=== PATIENT | male | born 1990 | race African-American/Black ===

== ENCOUNTER 2016-08-30 13:09 | Emergency (ER) | payer SELFPAY ==
[~2016-08-30] VITALS: Ht 170.2 cm; Wt 105.0 kg
[~2016-08-30 13:09] MED LIST: INSU-118 SQ; LEVEMIR SQ; NOVOLOGP2 SQ; NOVOLOGSS SQ
[2016-08-30 13:12] VITALS: BP 127/58; PULSE 18; PULSE 73; RESP 15; TEMP 98.2; O2SAT 98
--- NOTE | 2016-08-30 15:11 | PD ---
HPI Chief Complaint: Skin Problem Time Seen by Provider: 15:05 Travel History International Travel<30 days: No Contact w/Intl Traveler<30days: No Traveled to known affect area: No History of Present Illness HPI Patient comes in for evaluation of a abscess on his right buttocks that he first noticed approximately 3 days ago. Patient describes pain as a burning pressure-like sensation that radiates distally. Patient denies any fevers, nausea, vomiting, or previous episodes like this. Patient reports that he is a diabetic however his blood sugars have been unchanged since first noticing this. Patient states it began draining pus yesterday. Denies any change in bowel or bladder or pain with defecation.. PFSH Past Medical History Arthritis: No Asthma: No Autoimmune Disease: No Heart Rhythm Problems: No Cancer: No Cardiovascular Problems: No High Cholesterol: No Chemotherapy: No Chest Pain: No Congestive Heart Failure: No COPD: No Diabetes: Yes (NEW ONSET DIABETES ) Diminished Hearing: No GERD: No Genitourinary: No Hiatal Hernia: No Immune Disorder: No Kidney Stones: No Musculoskeletal: No Neurologic: No Psychiatric: No Respiratory: No Radiation Therapy: No Renal Failure: No Seizures: No Sickle Cell Disease: No Sleep Apnea: No Ulcer: No Social History Alcohol Use: No Tobacco Use: No Substance Use: No Allergies-Medications (Allergen,Severity, Reaction): Coded Allergies: No Known Allergies (Verified , 08/30/16) Reported Meds & Prescriptions Reported Meds & Active Scripts Active Keflex (Cephalexin) 500 Mg Cap 500 Mg PO Q8H Bactrim DS (Sulfamethoxazole-Trimethoprim) 800-160 Mg Tab 1 Tab PO BID Review of Systems Except as stated in HPI: all other systems reviewed are Neg Physical Exam Narrative GENERAL: Well-developed, overly nourished, in no acute distress, and non-ill appearing. SKIN: Warm and dry. Abscess noted on the right buttocks appears to have drained recently there is induration without fluctuation and no active draining currently. There is no crepitus is minimally tender to palpation. It is approximately 2.5 x 2 cm in diameter HEAD: Atraumatic. Normocephalic. EYES: Pupils equal and round. EOMI. No scleral icterus. No injection or drainage. ENT: No nasal bleeding or discharge. Mucous membranes pink and moist. NECK: Trachea midline. Supple. No nuclear rigidity. RESPIRATORY: No accessory muscle use. No respiratory distress. MUSCULOSKELETAL: No obvious deformities. No clubbing. No cyanosis. No edema. Full range of motion. NEUROLOGICAL: Awake and alert. No obvious cranial nerve deficits. Motor grossly within normal limits. Normal speech. PSYCHIATRIC: Appropriate mood and affect; insight and judgment normal. Data Data Last Documented VS Vital Signs Date Time Temp Pulse Resp B/P Pulse Ox O2 Delivery O2 Flow Rate FiO2 08/30/16 13:12 98.2 73 15 127/58 98 MDM Medical Decision Making Medical Screen Exam Complete: Yes Emergency Medical Condition: Yes Differential Diagnosis Abscess, cellulitis, other Narrative Course The patient has no evidence of significant cellulitis. There is no evidence of necrotizing fasciitis/ Forneys at this time. The patient will be discharged on antibiotics. The patient was given signs and symptoms warnings for worsening infection, such as spreading of redness, increasing pain, and/or swelling, associated heat, or fever or feels worse, and instructed to return immediately if these signs or symptoms worsen. The patient is to return in 2 days for recheck. Sooner if worsens or as needed. The patient agrees with plan. Patient in no obvious distress upon re-evaluation. Patient was asked if they wanted to speak to my attending, which the patient did not wish to do at this time. Any questions/concerns in reference to patient diagnosis/condition discussed and clarified prior to patient's discharge. Reinforced sheer importance of close follow up with patient's primary physician or primary care clinic. Instructed patient to return to ED immediately, if symptoms return/ worsen. Pt showed understanding of above instructions. Further instructions and recommendations were detailed in discharge paperwork. Pt ambulated without difficulty out of ED at discharge. Diagnosis Primary Impression: Abscess Patient Instructions: Abscess (GEN), Abscess Follow-up (ED), General Instructions, Sitz Bath (GEN) Additional Instructions: Follow-up with your primary care physician or return in 2 days for recheck. Take all medication as prescribed. Apply warm compresses or do sitz baths 3-4 times daily to facilitate continued drainage. Return to the emergency department if symptoms get worse. Med/Other Pt SpecificInfo: Prescription(s) given Scripts Cephalexin (Keflex)500 Mg [id number] Mg PO Q8H #30 CAP Ref 0 Prov:Abhijeet Jimenez MD 08/30/16 Sulfamethoxazole-Trimethoprim (Bactrim DS)800-160 Mg Tab1 Tab PO BID #20 TAB Ref 0 Prov:Abhijeet Jimenez MD 08/30/16 Disposition: 01 DISCHARGE HOME Condition: Stable Robert Roger Aug 30, 2016 15:11
[2016-08-30] MEDS ORDERED: BACT800T5 PO (15:12)
[2016-08-30] MEDS ORDERED: CEPH-460 PO (15:12)
== END 2016-08-30 15:23 | disposition home or self-care (01) ==
LOC: NEPB 13:09
DX: L02.31 Cutaneous abscess of buttock (principal)
CPT/HCPCS: 99283

== ENCOUNTER 2016-10-06 12:55 | Emergency (ER) | payer SELFPAY ==
[~2016-10-06] VITALS: Ht 170.2 cm; Wt 115.0 kg
[~2016-10-06 12:55] MED LIST changes: +BACT800T5 PO; +CEPH-460 PO; -INSU-118 SQ; -LEVEMIR SQ; -NOVOLOGP2 SQ; -NOVOLOGSS SQ
[2016-10-06 12:57] VITALS: BP 162/87; PULSE 96; RESP 15; TEMP 98.2; O2SAT 98
[2016-10-06] MEDS ORDERED: CEPH-460 PO (13:29)
--- NOTE | 2016-10-06 13:30 | PD ---
HPI Chief Complaint: Injury Time Seen by Provider: 13:21 Travel History International Travel<30 days: No Contact w/Intl Traveler<30days: No Traveled to known affect area: No History of Present Illness HPI Patient is a 26-year-old male presented to the emergency room for evaluation of right first toe pain. Patient states it's been going on for approximately 3 days. He denies any injury or trauma. He states that he chipped the nail on that toe a few days ago. Patient states that he is a diabetic, his sugars are so well controlled but he is no longer on medications. He denies any fever, chills, nausea, vomiting, chest pain, shortness of breath. He reports the pain as dull and aching. He reports it as a 3 out of 10. He has no other complaints at this time. PFSH Past Medical History Arthritis: No Asthma: No Autoimmune Disease: No Heart Rhythm Problems: No Cancer: No Cardiovascular Problems: No High Cholesterol: No Chemotherapy: No Chest Pain: No Congestive Heart Failure: No COPD: No Diabetes: Yes Patient Takes Glucophage: No Diminished Hearing: No GERD: No Genitourinary: No Hiatal Hernia: No Immune Disorder: No Kidney Stones: No Musculoskeletal: No Neurologic: No Psychiatric: No Respiratory: No Radiation Therapy: No Renal Failure: No Seizures: No Sickle Cell Disease: No Sleep Apnea: No Ulcer: No Social History Alcohol Use: No Tobacco Use: No Substance Use: No Allergies-Medications (Allergen,Severity, Reaction): Coded Allergies: No Known Allergies (Verified , 10/06/16) Reported Meds & Prescriptions Reported Meds & Active Scripts Active Keflex (Cephalexin) 500 Mg Cap 500 Mg PO Q8H Bactrim DS (Sulfamethoxazole-Trimethoprim) 800-160 Mg Tab 1 Tab PO BID Review of Systems Except as stated in HPI: all other systems reviewed are Neg Musculoskeletal: Positive: Edema Skin: Positive Change in Pigmentation Physical Exam Narrative GENERAL: Well-nourished, well-developed patient. SKIN: Focused skin assessment warm/dry. Right first toenail on the lateral aspect with fluctuance and yellowish discoloration. Mildly tender to palpation , no erythema noted. HEAD: Normocephalic. EYES: No scleral icterus. No injection or drainage. NECK: Supple, trachea midline. No JVD or lymphadenopathy. CARDIOVASCULAR: Regular rate and rhythm without murmurs, gallops, or rubs. RESPIRATORY: Breath sounds equal bilaterally. No accessory muscle use. GASTROINTESTINAL: Abdomen soft, non-tender, nondistended. MUSCULOSKELETAL: No cyanosis, or edema. BACK: Nontender without obvious deformity. No CVA tenderness. Data Data Last Documented VS Vital Signs Date Time Temp Pulse Resp B/P Pulse Ox O2 Delivery O2 Flow Rate FiO2 10/06/16 12:57 98.2 96 15 162/87 98 [facility] Medical Decision Making Medical Screen Exam Complete: Yes Emergency Medical Condition: Yes Interpretation(s) Vital Signs Date Time Temp Pulse Resp B/P Pulse Ox O2 Delivery O2 Flow Rate FiO2 10/06/16 12:57 98.2 96 15 162/87 98 Differential Diagnosis Cellulitis versus abscess versus paronychia versus contusion versus gout versus other Narrative Course Patient is a 26-year-old male presenting to the emergency department for evaluation of right first toe pain. Physical exam revealed a lateral paronychia on the right toe. Please see procedure report for I&D. Patient tolerated procedure well, topical antibiotic ointment and Band-Aid applied. Patient be provided with a prescription for an antibiotic. He is encouraged to avoid cutting nails too short. He was advised to return to emergency department for any new or worsening symptoms or follow up with his primary doctor. Patient verbalized understanding of these instructions. Patient stable for discharge. Procedures Procedure Narrative After the risks and benefits were discussed the following procedure was performed: INCISION AND DRAINAGE OF ABSCESS: The area was prepped and was sterilely draped. Topical ethyl chloride was used to anesthetize area. The area was properly anesthetized. An 18-gauge needle was used to puncture site of fluctuance, purulent drainage expressed. Topical antibiotic ointment and Sterile dressing applied. Diagnosis Primary Impression: Paronychia of great toe of right foot Referrals: Primary Care Physician 1 week Patient Instructions: General Instructions, Paronychia (ED) Additional Instructions: Keep toe clean and dry, apply topical antibiotic ointment and Band-Aid Take medications as directed Return to emergency department immediately for any new or worsening symptoms Med/Other Pt SpecificInfo: Prescription(s) given Scripts Cephalexin (Keflex)500 Mg [id number] Mg PO Q12H 5 Days Ref 0 Prov:Kerline Sims 10/06/16 Disposition: 01 DISCHARGE HOME Condition: Stable Kerline Sims Oct 06, 2016 13:30
== END 2016-10-06 13:35 | disposition home or self-care (01) ==
LOC: NETRI 12:55
DX: L03.031 Cellulitis of right toe (principal)
CPT/HCPCS: 10060

== ENCOUNTER 2016-11-29 12:23 | Emergency (ER) | payer SELFPAY ==
[~2016-11-29] VITALS: Ht 170.2 cm; Wt 110.0 kg
[2016-11-29 12:24] VITALS: BP 159/80; PULSE 92; RESP 20; TEMP 97.4; O2SAT 96
--- NOTE | 2016-11-29 12:27 | PD ---
Physical Exam Time Seen by Provider: 12:25 Narrative 26 y/o male here for evaluation of cramps in the extremities, torso, intermittent, for 3 days. Vital signs reviewed. Seen at triage desk, awaiting bed placement. Data Data Last Documented VS Vital Signs Date Time Temp Pulse Resp B/P Pulse Ox O2 Delivery O2 Flow Rate FiO2 11/29/16 12:24 97.4 92 20 159/80 96 Room Air MDM Medical Record Reviewed: Yes Supervised Visit with KAVITA: Dmitri Blake November 29, 2016 12:26
--- NOTE | 2016-11-29 12:55 | PD ---
HPI Chief Complaint: Pain: Acute or Chronic Time Seen by Provider: 12:48 Travel History International Travel<30 days: No Contact w/Intl Traveler<30days: No Traveled to known affect area: No History of Present Illness HPI Patient is a 26-year-old male who presents the emergency department with complaint of muscle cramps. Patient states that he has been having cramping in the muscles of the arms, legs for the last several days intermittently. These are painful when they do come. He hasn't found anything that makes it better or worse. Muscle cramps in the legs are the most bothersome. The cervantes is a diabetic, blood sugars have been running normally. He is otherwise been well eating and drinking normally without nausea vomiting or diarrhea. Patient is symptom-free at this time PFS Past Medical History Arthritis: No Asthma: No Autoimmune Disease: No Heart Rhythm Problems: No Cancer: No Cardiovascular Problems: No High Cholesterol: No Chemotherapy: No Chest Pain: No Congestive Heart Failure: No COPD: No Diabetes: Yes (CONTROLLED ) Diminished Hearing: No GERD: No Genitourinary: No Hiatal Hernia: No Immune Disorder: No Kidney Stones: No Musculoskeletal: No Neurologic: No Psychiatric: No Respiratory: No Radiation Therapy: No Renal Failure: No Seizures: No Sickle Cell Disease: No Sleep Apnea: No Ulcer: No Social History Alcohol Use: No Tobacco Use: No Substance Use: No Allergies-Medications (Allergen,Severity, Reaction): Coded Allergies: No Known Allergies (Verified , 11/29/16) Reported Meds & Prescriptions Reported Meds & Active Scripts Active Reported Levemir Inj (Insulin Detemir) 1,000 unit/ 10 ML Vial 1-2 Units SQ DIRECTED Do not mix with any other Insulin. Novolog Inj (Insulin Aspart) 1,000 Unit/10 Ml Vial 0 SQ DIRECTED Sliding Scale as directed. Review of Systems Except as stated in HPI: all other systems reviewed are Neg Physical Exam Narrative GENERAL: Well appearing male in no acute distress SKIN: Focused skin assessment warm/dry. HEAD: Normocephalic. EYES: . No scleral icterus. No injection or drainage. ENT: Mucous membranes pink and moist. NECK: Supple CARDIOVASCULAR: Regular rate and rhythm. RESPIRATORY: No accessory muscle use. GASTROINTESTINAL: Abdomen soft, non-tender, nondistended. Obese. MUSCULOSKELETAL: No obvious deformities. No clubbing. No cyanosis. No edema. NEUROLOGICAL: Awake and alert. Motor grossly within normal limits. Normal speech. PSYCHIATRIC: Appropriate mood and affect; insight and judgment normal. Data Data Last Documented VS Vital Signs Date Time Temp Pulse Resp B/P Pulse Ox O2 Delivery O2 Flow Rate FiO2 11/29/16 13:07 89 18 174/99 96 Room Air 11/29/16 12:24 97.4 Orders Basic Metabolic Panel (Bmp) (11/29/16 12:50) Magnesium (Mg) (11/29/16 12:50) Creatine Kinase (Cpk) (11/29/16 12:50) CKMB (11/29/16 13:00) CKMB% (11/29/16 13:00) Labs Laboratory Tests Test 11/29/16 13:00 Sodium Level 135 MEQ/L Potassium Level 3.9 MEQ/L Chloride Level 100 MEQ/L Carbon Dioxide Level 26.4 MEQ/L Anion Gap 9 MEQ/L Blood Urea Nitrogen 11 MG/DL Creatinine 1.04 MG/DL Estimat Glomerular Filtration 103 ML/MIN Rate Random Glucose 297 MG/DL Calcium Level 8.9 MG/DL Magnesium Level 2.1 MG/DL Total Creatine Kinase 1028 U/L MDM Medical Decision Making Medical Screen Exam Complete: Yes Emergency Medical Condition: Yes Medical Record Reviewed: Yes Differential Diagnosis 26-year-old male here with complaint of intermittent muscle cramps over the last several days. Differential includes dehydration, electrolyte abnormality, rhabdomyolysis Narrative Course BMP, magnesium, CPK were obtained and notable for CPK 1028. Patient was encouraged to drink plenty of fluids. Be discharged home as he is asymptomatic at this time Diagnosis Primary Impression: Rhabdomyolysis Qualified Code: M62.82 - Non-traumatic rhabdomyolysis Referrals: [facility] as needed Additional Instructions: Drink plenty of nonalcoholic fluids. Follow-up with referred primary care provider symptoms persist and return to the ER for the warning signs discussed. Med/Other Pt SpecificInfo: No Change to Meds Disposition: 01 DISCHARGE HOME Condition: Stable Odalys Nunez MD November 29, 2016 12:55
[2016-11-29] MEDS ORDERED: LEVEMIR SQ (13:06)
[2016-11-29] MEDS ORDERED: NOVOLOGP2 SQ (13:06)
[2016-11-29 13:07] VITALS: BP 174/99; PULSE 89; RESP 18; O2SAT 96
[2016-11-29 13:53] LABS: BICARBONATE 26.4 MEQ/L (21.0-32.0); MAGNESIUM 2.1 MG/DL (1.5-2.5); POTASSIUM 3.9 MEQ/L (3.5-5.1)
[2016-11-29 14:13] LABS: CKMB 4.3 NG/ML (0.5-3.6)
== END 2016-11-29 14:15 | disposition home or self-care (01) ==
LOC: NEPD 12:23
DX: M62.82 Rhabdomyolysis (principal)
CPT/HCPCS: 80048; 82550; 82552; 83735; 99283

== ENCOUNTER 2017-01-14 17:11 | Emergency (ER) | payer SELFPAY ==
[~2017-01-14] VITALS: Ht 170.2 cm; Wt 120.0 kg
[~2017-01-14 17:11] MED LIST changes: -BACT800T5 PO; -CEPH-460 PO; +LEVEMIR SQ; +NOVOLOGP2 SQ
[2017-01-14 17:12] VITALS: BP 143/87; PULSE 87; RESP 17; TEMP 98.2; O2SAT 98
--- NOTE | 2017-01-14 17:26 | PD ---
Physical Exam Date Seen by Provider: Jan 14, 2017 Time Seen by Provider: 17:25 Narrative 26 yo male here for evaluation of elevated Blood sugar. Diabetic and per patient compliant but sugars still high. Stays that even using his meds it doesnt stay down. No other symptoms at this time. No other medical issues today. Sugars in the 400s per patient. Usually in the 120s. Vitals are stable in triage. Awaiting Bed placement. Data Data Last Documented VS Vital Signs Date Time Temp Pulse Resp B/P Pulse Ox O2 Delivery O2 Flow Rate FiO2 01/14/17 17:12 98.2 87 17 143/87 98 MDM Medical Record Reviewed: Yes Supervised Visit with KAVITA: No Felix Daley Jan 14, 2017 17:26
[2017-01-14] MEDS ORDERED: SODIUM CHLOR 0.9% 1000 ML INJ 1,000 ML IV ONE (19:00)
[2017-01-14] MEDS ORDERED: INSULIN HUMAN REGULAR 1,000 UNITS/10 ML VIAL SQ ONE (19:00)
--- NOTE | 2017-01-14 19:00 | PD ---
HPI . Hyperglycemia Chief Complaint: Diabetic Time Seen by Provider: 18:47 Travel History International Travel<30 days: No Contact w/Intl Traveler<30days: No Traveled to known affect area: No History of Present Illness HPI Patient presents with a chief complaint of hyperglycemia. He states that he has had polyuria and polydipsia today prompting him to check his sugar. He states that it was over 400. He states he did take a dose of sliding scale insulin about 4 hours ago and that his sugar seems to be coming down. States that he has gained a little bit of weight lately and has been under stress lately. He thinks that that is what has caused his sugar to be high. He denies any nausea, vomiting, diarrhea, fever, chest pain, shortness of breath. PFSH Past Medical History Arthritis: No Asthma: No Autoimmune Disease: No Heart Rhythm Problems: No Cancer: No Cardiovascular Problems: No High Cholesterol: No Chemotherapy: No Chest Pain: No Congestive Heart Failure: No COPD: No Diabetes: Yes Patient Takes Glucophage: No Diminished Hearing: No GERD: No Genitourinary: No Hiatal Hernia: No Immune Disorder: No Kidney Stones: No Musculoskeletal: No Neurologic: No Psychiatric: No Respiratory: No Radiation Therapy: No Renal Failure: No Seizures: No Sickle Cell Disease: No Sleep Apnea: No Ulcer: No Past Surgical History Surgical History: No Previous Surgery Social History Alcohol Use: No Tobacco Use: No Substance Use: No Allergies-Medications (Allergen,Severity, Reaction): Coded Allergies: No Known Allergies (Verified , 11/29/16) Reported Meds & Prescriptions Reported Meds & Active Scripts Active Reported Levemir Inj (Insulin Detemir) 1,000 unit/ 10 ML Vial 1-2 Units SQ DIRECTED Do not mix with any other Insulin. Novolog Inj (Insulin Aspart) 1,000 Unit/10 Ml Vial 0 SQ DIRECTED Sliding Scale as directed. Review of Systems Except as stated in HPI: all other systems reviewed are Neg General / Constitutional: No: Fever, Chills Eyes: No: Blurred Vision Cardiovascular: No: Chest Pain or Discomfort Respiratory: No: Shortness of Breath Gastrointestinal: No: Nausea, Vomiting, Diarrhea, Abdominal Pain Genitourinary: Positive: Frequency Endocrine: Positive: Polyuria, Polydipsia Physical Exam Narrative GENERAL: Awake and alert and in no acute distress. He is sitting on a bedside chair in no distress. SKIN: Warm and dry. HEAD: Atraumatic. Normocephalic. EYES: Pupils equal and round. Extraocular movements are intact. NECK: Trachea midline. Neck is supple. CARDIOVASCULAR: Regular rate and rhythm. RESPIRATORY: No accessory muscle use. MUSCULOSKELETAL: No obvious deformities. No edema. NEUROLOGICAL: Awake and alert. No obvious cranial nerve deficits. Motor grossly within normal limits. Normal speech. PSYCHIATRIC: Appropriate mood and affect; insight and judgment normal. Data Data Last Documented VS Vital Signs Date Time Temp Pulse Resp B/P Pulse Ox O2 Delivery O2 Flow Rate FiO2 01/14/17 19:47 78 20 97 Room Air 01/14/17 17:12 98.2 143/87 Orders Sodium Chlor 0.9% 1000 Ml Inj (Ns 1000 M (01/14/17 19:00) Insulin Human Regular Inj (Novolin R Inj (01/14/17 19:00) MDM Medical Decision Making Medical Screen Exam Complete: Yes Emergency Medical Condition: Yes Differential Diagnosis Differential diagnosis of hyperglycemia includes but is not limited to dietary indiscretion, medication noncompliance, infection, RI Narrative Course Patient presents with polyuria, polydipsia and hyperglycemia. Fingerstick blood sugar in triage was 372. Patient reports that he would normally take 12 units of insulin for a sugar of 372. He'll be treated with a bolus of IV fluids along with subcutaneous insulin. His sugar will be rechecked in about an hour. BGL now 285. Will d/c. Diagnosis Primary Impression: Hyperglycemia Patient Instructions: Diabetic Hyperglycemia (DC), General Instructions Disposition: 01 DISCHARGE HOME Condition: Stable Carolina Hatch MD Jan 14, 2017 19:00
[2017-01-14 19:47] VITALS: PULSE 78; RESP 20; O2SAT 97
[2017-01-14 20:34] VITALS: BP 130/62
== END 2017-01-14 20:48 | disposition home or self-care (01) ==
LOC: NEPD 17:11
DX: E11.65 Type 2 diabetes mellitus with hyperglycemia (principal); Z79.4 Long term (current) use of insulin
CPT/HCPCS: 96360; 96372; 99284; J1815; J7030

== ENCOUNTER 2017-03-09 17:25 | Emergency (ER) | payer SELFPAY ==
[2017-03-09 17:26] VITALS: BP 154/83; PULSE 75; RESP 16; TEMP 98.4; O2SAT 98
[2017-03-09 17:36] VITALS: BP 147/76; PULSE 74; RESP 18; O2SAT 98
[2017-03-09] MEDS ORDERED: SODIUM CHLOR 0.9% 1000 ML INJ 1,000 ML IV SCH (17:39)
--- NOTE | 2017-03-09 17:43 | PD ---
HPI Chief Complaint: Diabetic Time Seen by Provider: 17:31 Travel History International Travel<30 days: No Contact w/Intl Traveler<30days: No Traveled to known affect area: No History of Present Illness HPI PATIENT STATES OUT OF INSULIN FOR A WEEK, AND HAD ELEVATED GLUCOSE, ON HIS [facility] Past Medical History Arthritis: No Asthma: No Autoimmune Disease: No Heart Rhythm Problems: No Cancer: No Cardiovascular Problems: No High Cholesterol: No Chemotherapy: No Chest Pain: No Congestive Heart Failure: No COPD: No Diabetes: Yes Patient Takes Glucophage: No Diminished Hearing: No Gastrointestinal Disorders: No GERD: No Genitourinary: No Hiatal Hernia: No Heparin Induced Thrombocytopen: No Hypertension: No Immune Disorder: No Implanted Vascular Access Dvce: No Kidney Stones: No Musculoskeletal: No Neurologic: No Psychiatric: No Respiratory: No Radiation Therapy: No Renal Failure: No Seizures: No Sickle Cell Disease: No Sleep Apnea: No Ulcer: No Past Surgical History Other Surgery: No Social History Alcohol Use: No Tobacco Use: No Substance Use: No Allergies-Medications (Allergen,Severity, Reaction): Coded Allergies: No Known Allergies (Verified , 11/29/16) Reported Meds & Prescriptions Reported Meds & Active Scripts Active Reported Levemir Inj (Insulin Detemir) 1,000 unit/ 10 ML Vial 1-2 Units SQ DIRECTED Do not mix with any other Insulin. Novolog Inj (Insulin Aspart) 1,000 Unit/10 Ml Vial 0 SQ DIRECTED Sliding Scale as directed. Review of Systems Except as stated in HPI: all other systems reviewed are Neg Endocrine: Positive: Polyuria, Polydipsia Physical Exam Narrative GENERAL: SKIN: Warm and dry. HEAD: Atraumatic. Normocephalic. EYES: Pupils equal and round. No scleral icterus. No injection or drainage. ENT: No nasal bleeding or discharge. Mucous membranes pink and moist. NECK: Trachea midline. No JVD. CARDIOVASCULAR: Regular rate and rhythm. RESPIRATORY: No accessory muscle use. Clear to auscultation. Breath sounds equal bilaterally. GASTROINTESTINAL: Abdomen soft, non-tender, nondistended. MUSCULOSKELETAL: Extremities without clubbing, cyanosis, or edema. No obvious deformities. NEUROLOGICAL: Awake and alert. No obvious cranial nerve deficits. Motor grossly within normal limits. Five out of 5 muscle strength in the arms and legs. Normal speech. PSYCHIATRIC: Appropriate mood and affect; insight and judgment normal. Data Data Last Documented VS Vital Signs Date Time Temp Pulse Resp B/P (MAP) Pulse Ox O2 Delivery O2 Flow Rate FiO2 03/09/17 20:03 83 16 136/81 (99) 96 Room Air 03/09/17 17:26 98.4 Orders Orders Electrocardiogram (03/09/17 17:31) Complete Blood Count With Diff (03/09/17 17:31) Comprehensive Metabolic Panel (03/09/17 17:31) Arterial Blood Gas (Abg) (03/09/17 17:31) Lipase (03/09/17 17:31) Chest, Single Ap (03/09/17 17:31) Iv Access Insert/Monitor (03/09/17 17:31) Ecg Monitoring (03/09/17 17:31) Oximetry (03/09/17 17:31) Sodium Chlor 0.9% 1000 Ml Inj (Ns 1000 M (03/09/17 17:39) Beta Hydroxybutyrate (Acetone) (03/09/17 17:39) Osmolality,Serum (03/09/17 17:39) Insulin Human Regular Inj (Novolin R Inj (03/09/17 19:45) Insulin Human Regular Inj (Novolin R Inj (03/09/17 19:45) Labs Laboratory Tests Test 03/09/17 17:50 03/09/17 18:03 03/09/17 18:40 White Blood Count 9.6 TH/MM3 Red Blood Count 5.15 MIL/MM3 Hemoglobin 14.4 GM/DL Hematocrit 42.1 % Mean Corpuscular Volume 81.9 FL Mean Corpuscular Hemoglobin 28.0 PG Mean Corpuscular Hemoglobin Concent 34.2 % Red Cell Distribution Width 13.2 % Platelet Count 233 TH/MM3 Mean Platelet Volume 9.6 FL Neutrophils (%) (Auto) 57.7 % Lymphocytes (%) (Auto) 29.2 % Monocytes (%) (Auto) 11.2 % Eosinophils (%) (Auto) 1.4 % Basophils (%) (Auto) 0.5 % Neutrophils # (Auto) 5.6 TH/MM3 Lymphocytes # (Auto) 2.8 TH/MM3 Monocytes # (Auto) 1.1 TH/MM3 Eosinophils # (Auto) 0.1 TH/MM3 Basophils # (Auto) 0.0 TH/MM3 CBC Comment DIFF FINAL Differential Comment Serum Osmolality 299 MOSM/KG B-Hydroxybutyrate 0.39 MMOL/L Blood Gas Puncture Site RT RADIAL Blood Gas Patient Temperature 98.6 Blood Gas HCO3 24 mmol/L Blood Gas Base Excess -0.4 mmol/L Blood Gas Oxygen Saturation 95 % Arterial Blood pH 7.40 Arterial Blood Partial Pressure CO2 39 mmHg Arterial Blood Partial Pressure O2 86 mmHG Arterial Blood Oxygen Content 19.5 Vol % Arterial Blood Carboxyhemoglobin 1.4 % Arterial Blood Methemoglobin 0.5 % Blood Gas Hemoglobin 14.6 G/DL Blood Gas Inspired Oxygen 21 % Blood Urea Nitrogen 9 MG/DL Creatinine 0.83 MG/DL Random Glucose 403 MG/DL Total Protein 7.0 GM/DL Albumin 3.2 GM/DL Calcium Level 8.2 MG/DL Alkaline Phosphatase 98 U/L Aspartate Amino Transf (AST/SGOT) 43 U/L Alanine Aminotransferase (ALT/SGPT) 33 U/L Total Bilirubin 0.5 MG/DL Sodium Level 131 MEQ/L Potassium Level 4.6 MEQ/L Chloride Level 99 MEQ/L Carbon Dioxide Level 24.9 MEQ/L Anion Gap 7 MEQ/L Estimat Glomerular Filtration Rate 133 ML/MIN Lipase 74 U/L [facility] Medical Decision Making Medical Screen Exam Complete: Yes Emergency Medical Condition: Yes Medical Record Reviewed: Yes Differential Diagnosis DKA V HYPEROSMOLAR V PNA V DEHYDRATION V ABNL ELECTROLYTES Narrative Course NO E/O PNA ON CXR, ABG NL, CLINICALLY NO HYPEROSMOLAR NONKETOTIC COMA NOTED, ALSO PATIENT GIVEN IVF BOLUS WELL INSULIN. PSEUDOHYPONATREMIA NOTED Diagnosis Primary Impression: HYPERGLYCEMIA DUE TO NONCOMPLIANCE Referrals: [facility] Additional Instructions: PLEASE FILL OUT INSULIN PRESCRIPTION AND FOLLOW UP WITH [facility] Disposition: 01 DISCHARGE HOME Condition: Stable Rex Montana MD Mar 09, 2017 17:43
[2017-03-09 18:02] VITALS: RESP 18; O2SAT 98
--- NOTE | 2017-03-09 18:03 | RADRPT ---
EXAM DATE/TIME: 03/09/2017 17:49 [place] COMPARISON: No previous studies available for comparison. INDICATIONS : Chest pain, shortness of breath. MEDICAL HISTORY : Diabetes mellitus type 1. SURGICAL HISTORY : None. ENCOUNTER: Initial ACUITY: 1 day PAIN SCORE: 0/10 LOCATION: Bilateral chest FINDINGS: A single view of the chest demonstrates the lungs to be symmetrically aerated without evidence of mas s, infiltrate or effusion. The cardiomediastinal contours are unremarkable. Osseous structures are intact. CONCLUSION: No acute disease. Aureliano Durant MD FACR on March 09, 2017 at 18:01 Board Certified Radiologist. This report was verified electronically.
[2017-03-09 18:14] LABS: AUTOMATED NEUTROPHIL # 5.6 TH/MM3 (1.8-7.7); BASOPHIL % 0.5 % (0.0-2.0); EOSINOPHIL # 0.1 TH/MM3 (0-0.4); EOSINOPHIL % 1.4 % (0.0-4.0); HEMATOCRIT 42.1 % (39.0-51.0); HEMO FLAGS DIFF FINAL; LYMPH % 29.2 % (9.0-44.0); LYMPHOCYTE # 2.8 TH/MM3 (1.0-4.8); MEAN CELL VOLUME 81.9 FL (80.0-100.0); MEAN CORPUSCULAR HGB CONC 34.2 % (32.0-36.0); MONO % 11.2 % (0.0-8.0); NEUT % 57.7 % (16.0-70.0); PLATELET COUNT 233 TH/MM3 (150-450); RED BLOOD COUNT 5.15 MIL/MM3 (4.50-5.90); RED CELL DISTRIBUTION WIDTH 13.2 % (11.6-17.2); WHITE BLOOD COUNT 9.6 TH/MM3 (4.0-11.0)
[2017-03-09 18:35] LABS: BLOOD GAS BASE EXCESS -0.4 mmol/L (-2-2); BLOOD GAS CARBOXYHEMOGLOBIN 1.4 % (0-4); BLOOD GAS HCO3 24 mmol/L (22-26); BLOOD GAS METHEMOGLOBIN 0.5 % (0-2); BLOOD GAS O2 HGB SATURATION 95 % (90-100); BLOOD GAS OXYGEN CONTENT 19.5 Vol % (12.0-20.0); BLOOD GAS PCO2 39 mmHg (38-42); BLOOD GAS PO2 86 mmHG (61-120); BLOOD GAS TOTAL HGB 14.6 G/DL (12.0-16.0); CRITICAL VALUE NO; DRAW SITE RT RADIAL; FIO2 21 %; NUMBER OF ARTERIAL PUNCTURES 1; STAT YES; TEMP CORR TO 98.6; ULNAR PULSE PRESENT
[2017-03-09 19:20] LABS: ALKALINE PHOSPHATASE 98 U/L (45-117); ALT (GPT) 33 U/L (12-78); ANION GAP 7 MEQ/L (5-15); AST (GOT) 43 U/L (15-37); BICARBONATE 24.9 MEQ/L (21.0-32.0); BLOOD UREA NITROGEN 9 MG/DL (7-18); CHLORIDE 99 MEQ/L (98-107); GLOMERULAR FILTRATION RATE 133 ML/MIN (>89); SODIUM (NA) 131 MEQ/L (136-145); TOTAL BILIRUBIN ADULT 0.5 MG/DL (0.2-1.0)
[2017-03-09 19:21] LABS: POTASSIUM 4.6 MEQ/L (3.5-5.1)
[2017-03-09] MEDS ORDERED: INSULIN HUMAN REGULAR 1,000 UNITS/10 ML VIAL IV PUSH ONE (19:45)
[2017-03-09] MEDS ORDERED: INSULIN HUMAN REGULAR 1,000 UNITS/10 ML VIAL SQ ONE (19:45)
[2017-03-09 20:03] VITALS: BP 136/81; PULSE 83; RESP 16; O2SAT 96
[2017-03-09 21:45] VITALS: PULSE 66; RESP 16; O2SAT 98
--- NOTE | 2017-03-10 20:12 | EKG ---
Date Performed: 03/09/2017 Time Performed: 17:55:36 PTAGE: 27 years EKG: Sinus rhythm WITH MARKED SINUS ARRHYTHMIA ST ELEVATION, PROBABLY EARLY REPOLARIZATION NONSPECIFIC T-WAVE ABNORMAL ITY BORDERLINE ECG NO PREVIOUS TRACING DOCTOR: Stephanie Menendez Interpretating Date/Time 03/10/2017 20:07:14
== END 2017-03-09 22:09 | disposition home or self-care (01) ==
LOC: NEPE 17:25
DX: E11.65 Type 2 diabetes mellitus with hyperglycemia (principal); Z79.4 Long term (current) use of insulin; Z91.14 Patient's other noncompliance with medication regimen
CPT/HCPCS: 36600; 71010; 80053; 82010; 82805; 83690; 83930; 85025; 93005; 96360; 96361; 96372; 99284; J1815; J7030

== ENCOUNTER 2017-11-06 18:57 | Emergency (ER) | payer OTHER ==
[2017-11-06 19:05] VITALS: BP 155/87; PULSE 89; RESP 15; TEMP 98.4; O2SAT 99
[2017-11-06] MEDS ORDERED: BACT800T5 PO (19:20)
[2017-11-06] MEDS ORDERED: CEPH-460 PO (19:20)
--- NOTE | 2017-11-06 19:22 | PD ---
HPI Chief Complaint: Skin Problem Time Seen by Provider: 19:17 Travel History International Travel<30 days: No Contact w/Intl Traveler<30days: No Traveled to known affect area: No History of Present Illness HPI 27-year-old male presents to the emergency department for evaluation of swelling and pain to the medial aspect of his right thumbnail. He states this started yesterday. He does state that he will bite his cuticles. Current pain is 8/10, throbbing, without radiation. No fevers or chills. He is a diabetic and takes metformin. He states his blood sugars are well-controlled. He has no other symptoms or complaints at this time. Mild severity. PFSH Past Medical History Arthritis: No Asthma: No Autoimmune Disease: No Heart Rhythm Problems: No Cancer: No Cardiovascular Problems: No High Cholesterol: No Chemotherapy: No Chest Pain: No Congestive Heart Failure: No COPD: No Diabetes: Yes Patient Takes Glucophage: Yes Diminished Hearing: No Gastrointestinal Disorders: No GERD: No Genitourinary: No Hiatal Hernia: No Heparin Induced Thrombocytopen: No Hypertension: No Immune Disorder: No Implanted Vascular Access Dvce: No Kidney Stones: No Musculoskeletal: No Neurologic: No Psychiatric: No Respiratory: No Radiation Therapy: No Renal Failure: No Seizures: No Sickle Cell Disease: No Sleep Apnea: No Ulcer: No Tetanus Vaccination: > 5 Years Influenza Vaccination: No Past Surgical History Surgical History: No Previous Surgery Other Surgery: No Social History Alcohol Use: No Tobacco Use: No Substance Use: No Allergies-Medications (Allergen,Severity, Reaction): Coded Allergies: No Known Allergies (Verified Adverse Reaction, Unknown, 11/06/17) Reported Meds & Prescriptions Reported Meds & Active Scripts Active Reported Levemir Inj (Insulin Detemir) 1,000 unit/ 10 ML Vial 1-2 Units SQ DIRECTED Do not mix with any other Insulin. Novolog Inj (Insulin Aspart) 1,000 Unit/10 Ml Vial 0 SQ DIRECTED Sliding Scale as directed. Review of Systems Except as stated in HPI: all other systems reviewed are Neg Physical Exam Narrative GENERAL: Well-nourished, well-developed male patient, afebrile. SKIN: Focused skin assessment warm/dry. Patient has paronychia to the right medial nailbed of the thumb. HEAD: Normocephalic. Atraumatic. EYES: No scleral icterus. No injection or drainage. NECK: Supple, trachea midline. No JVD or lymphadenopathy. CARDIOVASCULAR: Regular rate and rhythm without murmurs, gallops, or rubs. RESPIRATORY: Breath sounds equal bilaterally. No accessory muscle use. Lung sounds are clear to auscultation. MUSCULOSKELETAL: No cyanosis, or edema. Data Data Last Documented VS Vital Signs Date Time Temp Pulse Resp B/P (MAP) Pulse Ox O2 Delivery O2 Flow Rate FiO2 11/06/17 19:05 98.4 89 15 155/87 (109) 99 MDM Medical Decision Making Medical Screen Exam Complete: Yes Emergency Medical Condition: Yes Medical Record Reviewed: Yes Differential Diagnosis Paronychia versus abscess versus felon Narrative Course 27-year-old male presents to the emergency department for evaluation of paronychia to the right thumb. Patient gives verbal consent for incision and drainage. He will be discharged with a prescription for Bactrim and Keflex. The patient was discharged in stable condition with instructions, including return instructions and follow up instructions. Procedures Procedure Narrative INCISION AND DRAINAGE OF ABSCESS: The area was prepped and was sterilely draped. A subcutaneous wheal of 1% Xylocaine with a total number 1 mL was used to anesthetize the area. The area was properly anesthetized. A number 11 scalpel was used to make a 0.5 -cm incision across the area of the abscess. Cultures were obtained. The abscess was drained an irrigated with normal saline. Sterile dressing applied. Diagnosis Primary Impression: Paronychia of right thumb Referrals: Primary Care Physician call for appointment Patient Instructions: General Instructions, Paronychia (ED) Additional Instructions: Clean twice daily with soap and water and apply alum-vif-yefiabm antibiotic ointment. Keep clean and dry. Warm compresses. Take antibiotics as directed until gone. Follow-up with a primary care physician. Return to the emergency department for any acute worsening of symptoms. Med/Other Pt SpecificInfo: Prescription(s) given Scripts Cephalexin (Keflex) 500 Mg Cap 500 MG PO Q6H for Infection for 10 Days, #40 CAP 0 Refills Prov: Joanna Gould 11/06/17 Sulfamethoxazole-Trimethoprim (Bactrim DS) 800-160 Mg Tab 1 TAB PO BID for Infection, #20 TAB 0 Refills Prov: Joanna Gould 11/06/17 Disposition: 01 DISCHARGE HOME Condition: Stable Joanna Gould November 06, 2017 19:22
[2017-11-11] MEDS ORDERED: CEPH-460 PO (09:41)
[2017-11-11] MEDS ORDERED: BACT800T5 PO (09:41)
[2017-11-11] MEDS ORDERED: METF500 PO (09:45)
== END 2017-11-06 19:31 | disposition home or self-care (01) ==
LOC: NEPK 18:57
DX: L03.011 Cellulitis of right finger (principal); E11.9 Type 2 diabetes mellitus without complications; Z79.4 Long term (current) use of insulin
CPT/HCPCS: 26010; 86403; 87070; 87205

== ENCOUNTER 2017-11-11 09:20 | Emergency (ER) | payer OTHER ==
[2017-11-11] MEDS: BUPIVACAINE HCL PF 0.5% 10 ML VIAL INFIL (09:45)
[2017-11-11] MEDS: LIDOCAINE HCL 1% PF 30 ML VIAL INFIL (09:59)
== END 2017-11-11 10:35 | disposition home or self-care (01) ==
LOC: NEPD 09:20
DX: L03.011 Cellulitis of right finger (principal); E11.9 Type 2 diabetes mellitus without complications; Z79.2 Long term (current) use of antibiotics; Z79.84 Long term (current) use of oral hypoglycemic drugs
CPT/HCPCS: 10060; 99282-25

== ENCOUNTER 2017-11-13 08:20 | Inpatient (IN) | payer OTHER ==
[~2017-11-13] VITALS: Ht 170.2 cm; Wt 94.5 kg
[~2017-11-13 08:20] MED LIST changes: -LEVEMIR SQ; +METF500 PO; -NOVOLOGP2 SQ
[2017-11-13 08:25] VITALS: BP 143/82; PULSE 82; RESP 16; TEMP 97.3; O2SAT 98
--- NOTE | 2017-11-13 09:42 | PD ---
HPI Chief Complaint: Wound/Suture/Staple Re-Check Time Seen by Provider: 09:14 Travel History International Travel<30 days: No Contact w/Intl Traveler<30days: No Traveled to known affect area: No History of Present Illness HPI This patient presents for scheduled recheck of incision and drainage of his right thumb. He was seen here 1 week ago and had an incision and drainage and started on antibiotics. He reports compliance with them. He returned 2 days ago and had a second I&D done. Packing was placed. Unfortunately continues to swell. He is having significant pain in the right thumb. He denies fever. Symptom severity is moderate. Worse with movement or pressure. No alleviating factors. Patient is diabetic maintained on metformin. He is right-handed. PFSH Past Medical History Arthritis: No Asthma: No Autoimmune Disease: No Heart Rhythm Problems: No Cancer: No Cardiovascular Problems: No High Cholesterol: No Chemotherapy: No Chest Pain: No Congestive Heart Failure: No COPD: No Diabetes: Yes Patient Takes Glucophage: Yes Diminished Hearing: No Gastrointestinal Disorders: No GERD: No Genitourinary: No Hiatal Hernia: No Heparin Induced Thrombocytopen: No Hypertension: No Immune Disorder: No Implanted Vascular Access Dvce: No Kidney Stones: No Musculoskeletal: No Neurologic: No Psychiatric: No Respiratory: No Radiation Therapy: No Renal Failure: No Seizures: No Sickle Cell Disease: No Sleep Apnea: No Ulcer: No Tetanus Vaccination: > 5 Years Past Surgical History Other Surgery: No Social History Alcohol Use: No Tobacco Use: No Substance Use: No Allergies-Medications (Allergen,Severity, Reaction): Coded Allergies: No Known Allergies (Verified Adverse Reaction, Unknown, 11/13/17) Reported Meds & Prescriptions Reported Meds & Active Scripts Active Reported Glucophage (Metformin HCl) 500 Mg Tab 500 Mg PO TIDPC Review of Systems General / Constitutional: No: Fever Eyes: No: Visual changes HENT: No: Headaches Cardiovascular: No: Chest Pain or Discomfort Respiratory: No: Shortness of Breath Gastrointestinal: No: Abdominal Pain Genitourinary: No: Dysuria Musculoskeletal: Positive: Pain Skin: No Rash Neurologic: No: Weakness Psychiatric: No: Depression Endocrine: No: Polydipsia Hematologic/Lymphatic: No: Easy Bruising Physical Exam Narrative GENERAL: Well-nourished, well-developed patient in no apparent distress. SKIN: Focused skin assessment reveals no rash and nodules. Skin is Warm and dry. HEAD: Atraumatic. Normocephalic. EYES: Pupils equal and round. No scleral icterus. No injection or drainage. ENT: No nasal bleeding or discharge. Mucous membranes pink and moist. NECK: Trachea midline. No JVD. CARDIOVASCULAR: Regular rate and rhythm. No murmur appreciated. RESPIRATORY: No accessory muscle use. Clear to auscultation. Breath sounds equal bilaterally. GASTROINTESTINAL: Abdomen soft, non-tender, nondistended. Hepatic and splenic margins not palpable. MUSCULOSKELETAL: Patient's right thumb is about double the size of his left. There is obvious purulence almost circumferential from the IP joint to the tip of the thumb. It is tender. There is no active drainage from the I&D site. I removed the packing. No clubbing. No cyanosis. No edema. NEUROLOGICAL: Awake and alert. No obvious cranial nerve deficits. Motor grossly within normal limits. Normal speech. PSYCHIATRIC: Appropriate mood and affect; insight and judgment normal. Data Data Last Documented VS Vital Signs Date Time Temp Pulse Resp B/P (MAP) Pulse Ox O2 Delivery O2 Flow Rate FiO2 11/13/17 08:25 97.3 82 16 143/82 (102) 98 Orders Orders Iv Access Insert/Monitor (11/13/17 09:35) Complete Blood Count With Diff (11/13/17 09:35) Basic Metabolic Panel (Bmp) (11/13/17 09:35) Prothrombin Time / Inr (Pt) (11/13/17 09:35) Act Partial Throm Time (Ptt) (11/13/17 09:35) Vancomycin Inj (Vancomycin Inj) (11/13/17 10:00) Piperacil-Tazo 3.375 Gm Premix (Zosyn 3. (11/13/17 10:00) Metformin (Glucophage) (11/13/17 13:30) Place In Observation (11/13/17 ) Code Status (11/13/17 10:55) Vital Signs (Adult) Q4H (11/13/17 10:55) Activity Oob With Assistance (11/13/17 10:55) Sodium Chloride 0.9% Flush (Ns Flush) (11/13/17 11:00) Sodium Chloride 0.9% Flush (Ns Flush) (11/13/17 21:00) Acetaminophen (Tylenol) (11/13/17 11:00) Ondansetron Inj (Zofran Inj) (11/13/17 11:00) Temazepam (Restoril) (11/13/17 11:00) Basic Metabolic Panel (Bmp) (11/14/17 06:00) Complete Blood Count With Diff (11/14/17 06:00) Chest, Single Ap (11/13/17 10:55) Electrocardiogram (11/13/17 10:55) Scd Bilateral/Knee High TEMO.BID (11/13/17 10:55) Naloxone Inj (Narcan Inj) (11/13/17 11:00) Magnesium Hydroxide Liq (Milk Of Magnesi (11/13/17 11:00) Insulin Aspart Supplemtl Scale (Novolog (11/13/17 12:00) Piperacil-Tazo 3.375 Gm Premix (Zosyn 3. (11/13/17 11:00) Consult Hand Surgery (11/13/17 ) Vancomycin Inj (Vancomycin Inj) (11/13/17 23:00) Vancomycin Consult Pharmacy (Vancomycin (11/13/17 11:15) NPO (11/13/17 11:06) Labs Laboratory Tests Test 11/13/17 09:30 White Blood Count 12.5 TH/MM3 Red Blood Count 5.84 MIL/MM3 Hemoglobin 15.7 GM/DL Hematocrit 46.5 % Mean Corpuscular Volume 79.5 FL Mean Corpuscular Hemoglobin 26.9 PG Mean Corpuscular Hemoglobin Concent 33.8 % Red Cell Distribution Width 13.3 % Platelet Count 400 TH/MM3 Mean Platelet Volume 8.6 FL Neutrophils (%) (Auto) 57.5 % Lymphocytes (%) (Auto) 31.0 % Monocytes (%) (Auto) 10.2 % Eosinophils (%) (Auto) 0.8 % Basophils (%) (Auto) 0.5 % Neutrophils # (Auto) 7.2 TH/MM3 Lymphocytes # (Auto) 3.9 TH/MM3 Monocytes # (Auto) 1.3 TH/MM3 Eosinophils # (Auto) 0.1 TH/MM3 Basophils # (Auto) 0.1 TH/MM3 CBC Comment DIFF FINAL Differential Comment Prothrombin Time 10.3 SEC Prothromb Time International Ratio 1.0 RATIO Activated Partial Thromboplast Time 27.0 SEC Blood Urea Nitrogen 11 MG/DL Creatinine 0.91 MG/DL Random Glucose 339 MG/DL Calcium Level 9.5 MG/DL Sodium Level 132 MEQ/L Potassium Level 4.2 MEQ/L Chloride Level 96 MEQ/L Carbon Dioxide Level 27.9 MEQ/L Anion Gap 8 MEQ/L Estimat Glomerular Filtration Rate 119 ML/MIN MDM Medical Decision Making Medical Screen Exam Complete: Yes Emergency Medical Condition: Yes Medical Record Reviewed: Yes Differential Diagnosis Abscess, cellulitis, paronychia, felon Narrative Course I have reviewed the patient's electronic medical record. I reviewed the prior 2 visits. Culture results were not particular revealing. Small amounts of several different things have grown including staph epi and strep viridans and gram-negative gilbert I reviewed with her hand surgeon mortgage loan computation clerk. He has requested that I obtain pictures of the thumb and text it to him so he can review the situation. He is currently in the operating room and cannot come by for a couple of hours. The patient is agreeable with this. And I have done so. I am awaiting callback. In the meantime I have placed an IV and sent labs. CBC shows white count 12.5 Metabolic studies reveal hyperglycemia of 339 Hand surgeon has evaluated the patient. He recommends admission for IV antibiotics and he will do a more formal I&D procedure later today. I reviewed with the hospitalist Diagnosis Primary Impression: Abscess of thumb, right Additional Impressions: Diabetes mellitus Qualified Codes: E11.8 - Type 2 diabetes mellitus with unspecified complications Hyperglycemia Admitting Information Admitting Physician Requests: Admit Emir Sharp MD November 13, 2017 09:42
[2017-11-13] MEDS ORDERED: VANCOMYCIN INJ 1,000 MG in SODIUM CHLOR 0.9% 250 ML INJ 250 ML IV ONE (10:00)
[2017-11-13] MEDS ORDERED: PIPERACIL-TAZO 3.375 GM PREMIX 50 ML IV ONE (10:00)
[2017-11-13 10:01] LABS: AUTOMATED NEUTROPHIL # 7.2 TH/MM3 (1.8-7.7); BASOPHIL # 0.1 TH/MM3 (0-0.2); BASOPHIL % 0.5 % (0.0-2.0); EOSINOPHIL # 0.1 TH/MM3 (0-0.4); EOSINOPHIL % 0.8 % (0.0-4.0); HEMATOCRIT 46.5 % (39.0-51.0); HEMOGLOBIN 15.7 GM/DL (13.0-17.0); LYMPHOCYTE # 3.9 TH/MM3 (1.0-4.8); MEAN CELL VOLUME 79.5 FL (80.0-100.0); MEAN CORPUSCULAR HEMOGLOBIN 26.9 PG (27.0-34.0); MEAN CORPUSCULAR HGB CONC 33.8 % (32.0-36.0); MEAN PLATELET VOLUME 8.6 FL (7.0-11.0); MONO % 10.2 % (0.0-8.0); MONOCYTE # 1.3 TH/MM3 (0-0.9); NEUT % 57.5 % (16.0-70.0); PLATELET COUNT 400 TH/MM3 (150-450); RED BLOOD COUNT 5.84 MIL/MM3 (4.50-5.90); RED CELL DISTRIBUTION WIDTH 13.3 % (11.6-17.2); WHITE BLOOD COUNT 12.5 TH/MM3 (4.0-11.0)
[2017-11-13 10:12] LABS: PROTHROMBIN TIME - PATIENT 10.3 SEC (9.8-11.6)
[2017-11-13 10:28] LABS: BICARBONATE 27.9 MEQ/L (21.0-32.0); CALCIUM 9.5 MG/DL (8.5-10.1); CREATININE 0.91 MG/DL (0.60-1.30)
[2017-11-13] MEDS ORDERED: ONDANSETRON HCL 4 MG/2 ML VIAL IVP PRN (11:00)
[2017-11-13] MEDS ORDERED: SODIUM CHLORIDE 0.9% FLUSH 10 ML FLUSH IV FLUSH PRN (11:00)
[2017-11-13] MEDS ORDERED: TEMAZEPAM 15 MG CAP PO PRN (11:00)
[2017-11-13] MEDS ORDERED: MAGNESIUM HYDROXIDE SUSP 30 ML CUP PO PRN (11:00)
[2017-11-13] MEDS ORDERED: NALOXONE HCL 0.4 MG/ML AMP IV PUSH PRN (11:00)
[2017-11-13] MEDS ORDERED: ACETAMINOPHEN 325 MG TAB PO PRN (11:00)
--- NOTE | 2017-11-13 11:12 | HHI.HP ---
HPI Service CP Hospitalists Primary Care Physician Unknown Admission Diagnosis abscess right thumb, DM Chief Complaint: edmea and pain right thumb Travel History International Travel<30 Days: No Contact w/Intl Traveler <30 Da: No Traveled to Known Affected Are: No History of Present Illness This is a 27-year-old male patient with past medical history which includes diabetes mellitus currently on metformin. Patient initially presented to the emergency department on 11/06/2017 with edema and pain on the medial aspect of his right thumb which started 11/05/2017. Patient does endorse biting cuticles. On 12/03/2017 patient underwent I&D then was discharged home on Keflex and Bactrim by mouth. Culture and Gram stain from 11/07/2017 revealed staph species coagulase-negative, Staphylococcus viridans and gram-negative rods. Patient returned to the emergency department on 11/11/2017 with worsening edema and pain of the right thumb area. On 11/11/2017 patient underwent I&D of right thumb with packing placed. Patient returned to emergency department today as instructed packing was removed. Patient reports being compliant with his by mouth antibiotics. Unfortunately the patient is having worsening edema and pain to the right thumb. ER provider contacted Plastic surgeon wire preparation machine tender Dr. Moser who would like patient admitted to observation and plans to do bedside I&D later today. Review of Systems Constitutional: DENIES: Fatigue, Fever, Chills Respiratory: DENIES: Cough, Sputum production, Shortness of breath Cardiovascular: DENIES: Chest pain, Palpitations, Dyspnea on Exertion, Lower Extremity Edema Gastrointestinal: DENIES: Abdominal pain, Constipation, Diarrhea, Nausea, Vomiting Integumentary: COMPLAINS OF: Abnormal pigmentation Neurologic: DENIES: Abnormal gait, Localized weakness, Speech Problems Psychiatric: DENIES: Anxiety, Confusion, Depression Past Family Social History Past Medical History DM Past Surgical History I&D right thumb 11/06/17 and 11/11/17 Reported Medications Glucophage (Metformin HCl) 500 Mg Tab 500 Mg PO TIDPC Allergies: Coded Allergies: No Known Allergies (Verified Adverse Reaction, Unknown, 11/13/17) Family History DM on father's side Social History Occasional ETOH use denies tobacco use or illicit drug use Physical Exam Vital Signs Vital Signs Date Time Temp Pulse Resp B/P (MAP) Pulse Ox O2 Delivery O2 Flow Rate FiO2 11/13/17 08:25 97.3 82 16 143/82 (102) 98 Physical Exam GENERAL: This is a well-nourished, well-developed patient, in no apparent distress. SKIN: right thumb with edema HEAD: Atraumatic. Normocephalic. No temporal or scalp tenderness. EYES: Extraocular motions intact. No scleral icterus. No injection or drainage. CARDIOVASCULAR: Regular rate and rhythm RESPIRATORY: Clear to auscultation. Breath sounds equal bilaterally. GASTROINTESTINAL: Abdomen soft, non-tender, nondistended. MUSCULOSKELETAL: Extremities without clubbing, cyanosis, or edema. No joint tenderness, effusion, or edema noted. No calf tenderness. Negative Homans sign bilaterally. NEUROLOGICAL: Awake and alert. No focal deficits. Motor and sensory grossly within normal limits. Five out of 5 muscle strength in all muscle groups. Normal speech. Laboratory Laboratory Tests Test 11/13/17 09:30 White Blood Count 12.5 Red Blood Count 5.84 Hemoglobin 15.7 Hematocrit 46.5 Mean Corpuscular Volume 79.5 Mean Corpuscular Hemoglobin 26.9 Mean Corpuscular Hemoglobin Concent 33.8 Red Cell Distribution Width 13.3 Platelet Count 400 Mean Platelet Volume 8.6 Neutrophils (%) (Auto) 57.5 Lymphocytes (%) (Auto) 31.0 Monocytes (%) (Auto) 10.2 Eosinophils (%) (Auto) 0.8 Basophils (%) (Auto) 0.5 Neutrophils # (Auto) 7.2 Lymphocytes # (Auto) 3.9 Monocytes # (Auto) 1.3 Eosinophils # (Auto) 0.1 Basophils # (Auto) 0.1 CBC Comment DIFF FINAL Differential Comment Prothrombin Time 10.3 Prothromb Time International Ratio 1.0 Activated Partial Thromboplast Time 27.0 Blood Urea Nitrogen 11 Creatinine 0.91 Random Glucose 339 Calcium Level 9.5 Sodium Level 132 Potassium Level 4.2 Chloride Level 96 Carbon Dioxide Level 27.9 Anion Gap 8 Estimat Glomerular Filtration Rate 119 Result Diagram: 11/13/1730 11/13/17929 Imaging Last Impressions Chest X-Ray 11/13/17 1055 Signed Impressions: Service Date/Time: November 11:01 - CONCLUSION: No acute disease. MD [place] VTE Risk Assessment Caprini VTE Risk Assessment: No/Low Risk (score <= 1) Caprini Risk Assessment Model Point Value = 1 Point Value = 2 Point Value = 3 Point Value = 5 Age 41-60 Minor surgery BMI > 25 kg/m2 Swollen legs Varicose veins or History of unexplained or recurrent spontaneous Oral contraceptives or hormone replacement Sepsis (< 1 month) Serious lung disease, including pneumonia (< 1 month) Abnormal pulmonary function Acute myocardial infarction Congestive heart failure (< 1 month) History of inflammatory bowel disease Medical patient at bed rest Age 61-74 Arthroscopic surgery Major open surgery (> 45 min) Laparoscopic surgery (> 45 min) Malignancy Confined to bed (> 72 hours) Immobilizing plaster cast Central venous access Age >= 75 History of VTE Family history of VTE Factor V Leiden Prothrombin 50600C Lupus anticoagulant Anticardiolipin antibodies Elevated serum homocysteine Heparin-induced thrombocytopenia Other congenital or acquired thrombophilia Stroke (< 1 month) Elective arthroplasty Hip, pelvis, or leg fracture Acute spinal cord injury (< 1 month) Prophylaxis Regimen Total Risk Factor Score Risk Level Prophylaxis Regimen 0-1 Low Early ambulation 2 Moderate Order ONE of the following: *Sequential Compression Device (SCD) *Heparin 5000 units SQ BID 3-4 Higher Order ONE of the following medications: *Heparin 5000 units SQ TID *Enoxaparin/Lovenox 40 mg SQ daily (WT < 150 kg, CrCl > 30 mL/min) *Enoxaparin/Lovenox 30 mg SQ daily (WT < 150 kg, CrCl > 10-29 mL/min) *Enoxaparin/Lovenox 30 mg SQ BID (WT < 150 kg, CrCl > 30 mL/min) AND/OR *Sequential Compression Device (SCD) 5 or more Highest Order ONE of the following medications: *Heparin 5000 units SQ TID (Preferred with Epidurals) *Enoxaparin/Lovenox 40 mg SQ daily (WT < 150 kg, CrCl > 30 mL/min) *Enoxaparin/Lovenox 30 mg SQ daily (WT < 150 kg, CrCl > 10-29 mL/min) *Enoxaparin/Lovenox 30 mg SQ BID (WT < 150 kg, CrCl > 30 mL/min) AND *Sequential Compression Device (SCD) Assessment and Plan Problem List: (1) Abscess of thumb, right ICD Codes: L02.511 - Cutaneous abscess of right hand Status: Acute Plan: Patient is S/P I&D 11/06/17 and 11/11/17 Patient has completed Keflex and Bactrim outpatient Culture and Gram stain from 11/07/2017 revealed staph species coagulase-negative, Staphylococcus viridans and gram-negative rods. ER provider contacted Plastic surgeon wire preparation machine tender Dr. Moser who would like patient admitted to observation and plans to do bedside I&D later today Consult placed to Plastic surgery [place] and morphine as needed for pain Patient NPO at this time Continue IV Vancomycin and Zosyn DVT prophylaxis with SCDs (2) Diabetes mellitus ICD Codes: E11.9 - Type 2 diabetes mellitus without complications Status: Acute Plan: Patient's blood glucose elevated on admission Continue home metformin 500 mg PO BID add accu checks ACHS with SSI coverage Problem Qualifiers (1) Diabetes mellitus: Qualified Codes: E11.8 - Type 2 diabetes mellitus with unspecified complications Selma Oliveira November 13, 2017 11:12
[2017-11-13] MEDS ORDERED: Vancomycin Consult Pharmacy 1 EA OTHER SCH (11:15)
--- NOTE | 2017-11-13 11:27 | RADRPT ---
EXAM DATE/TIME: 11/13/2017 11:01 [facility] COMPARISON: CHEST SINGLE AP, March 09, 2017, 17:49. INDICATIONS : Evaluate for pneumonia, pneumothorax, or communicable disese. Pre op for thumb I and D. MEDICAL HISTORY : None. SURGICAL HISTORY : None. ENCOUNTER: Initial ACUITY: 1 day PAIN SCORE: 0/10 LOCATION: Bilateral chest FINDINGS: A single view of the chest demonstrates the lungs to be symmetrically aerated without evidence of mas s, infiltrate or effusion. The cardiomediastinal contours are unremarkable. Osseous structures are intact. CONCLUSION: No acute disease. Luis Alberto Marcano MD on November 13, 2017 at 11:25 Board Certified Radiologist. This report was verified electronically.
[2017-11-13] MEDS: INSULIN ASPART SUPPLEMENTAL SCALE SQ SCH ×3 (11:47→20:08)
[2017-11-13] MEDS ORDERED: DEXTROSE 50% IN WATER 50 ML VIAL(D50) IV PUSH PRN (12:30)
[2017-11-13] MEDS ORDERED: GLUCAGON 1 MG/ML VIAL OTHER PRN (12:30)
[2017-11-13] MEDS: metFORMIN HCL 500 MG TAB PO SCH ×2 (13:23→17:17)
[2017-11-13] MEDS ORDERED: LIDOCAINE HCL 1% 50 ML VIAL ONE (14:23)
[2017-11-13 14:30] VITALS: BP 137/85; PULSE 84; RESP 16; TEMP 97.6; O2SAT 99
--- NOTE | 2017-11-13 15:05 | PD.CONS ---
History of Present Illness Service Hand surgery Consult Requested By Primary team Reason for Consult Right thumb renetta Primary Care Physician Unknown Diagnoses: (1) Abscess of thumb, right (2) Diabetes mellitus, new onset History of Present Illness 27-year-old male presented to the emergency department status post 2 right thumb I&D's. The first one was roughly 1 week ago when this began. The patient reports he bites his nails and that may have caused it. He denies this happening previously. Right thumb is become worse in the last several days. He denies fever. Moderate pain limited to the thumb tip. Worse with movement or pressure. No alleviating factors. Patient is diabetic maintained on metformin. He is right-handed. History PFSH Past Medical History Arthritis: No Asthma: No Autoimmune Disease: No Heart Rhythm Problems: No Cancer: No Cardiovascular Problems: No High Cholesterol: No Chemotherapy: No Chest Pain: No Congestive Heart Failure: No COPD: No Diabetes: Yes Patient Takes Glucophage: Yes Diminished Hearing: No Gastrointestinal Disorders: No GERD: No Genitourinary: No Hiatal Hernia: No Heparin Induced Thrombocytopen: No Hypertension: No Immune Disorder: No Implanted Vascular Access Dvce: No Kidney Stones: No Musculoskeletal: No Neurologic: No Psychiatric: No Respiratory: No Radiation Therapy: No Renal Failure: No Seizures: No Sickle Cell Disease: No Sleep Apnea: No Ulcer: No Tetanus Vaccination: > 5 Years Past Surgical History Other Surgery: No Social History Alcohol Use: No Tobacco Use: No Substance Use: No Allergies-Medications Allergies-Medications (Allergen,Severity, Reaction): Coded Allergies: No Known Allergies (Verified Adverse Reaction, Unknown, 11/13/17) Reported Meds & Prescriptions Reported Meds & Active Scripts Active Reported Glucophage (Metformin HCl) 500 Mg Tab 500 Mg PO TIDPC Family history noncontributory to presenting complaint Past Family Social History Allergies: Coded Allergies: No Known Allergies (Verified Adverse Reaction, Unknown, 11/13/17) Physical Exam Vital Signs Vital Signs Date Time Temp Pulse Resp B/P (MAP) Pulse Ox O2 Delivery O2 Flow Rate FiO2 11/13/17 14:30 97.6 84 16 137/85 (102) 99 11/13/17 08:25 97.3 82 16 143/82 (102) 98 Physical Exam No apparent anxiety alert and oriented 3 moist mucous membranes PERRLA skin without rash respirations nonlabored gait within normal limits digits warm well perfused Right thumb with pulp fluctuance 2 incisions 1 just proximal to the eponychial fold and one along the ulnar thumb tip with purulence expressed Sensation intact light touch distally though very diminished on the ulnar aspect Minimal tenderness to firm palpation over the proximal thumb phalanx Tenderness limited to the ulnar thumb tip and paronychial area Laboratory Laboratory Tests Test 11/13/17 09:30 White Blood Count 12.5 Red Blood Count 5.84 Hemoglobin 15.7 Hematocrit 46.5 Mean Corpuscular Volume 79.5 Mean Corpuscular Hemoglobin 26.9 Mean Corpuscular Hemoglobin Concent 33.8 Red Cell Distribution Width 13.3 Platelet Count 400 Mean Platelet Volume 8.6 Neutrophils (%) (Auto) 57.5 Lymphocytes (%) (Auto) 31.0 Monocytes (%) (Auto) 10.2 Eosinophils (%) (Auto) 0.8 Basophils (%) (Auto) 0.5 Neutrophils # (Auto) 7.2 Lymphocytes # (Auto) 3.9 Monocytes # (Auto) 1.3 Eosinophils # (Auto) 0.1 Basophils # (Auto) 0.1 CBC Comment DIFF FINAL Differential Comment Prothrombin Time 10.3 Prothromb Time International Ratio 1.0 Activated Partial Thromboplast Time 27.0 Blood Urea Nitrogen 11 Creatinine 0.91 Random Glucose 339 Calcium Level 9.5 Sodium Level 132 Potassium Level 4.2 Chloride Level 96 Carbon Dioxide Level 27.9 Anion Gap 8 Estimat Glomerular Filtration Rate 119 Result Diagram: 11/13/1792911/13/17929 Assessment and Plan Problem List: (1) Abscess of thumb, right ICD Codes: L02.511 - Cutaneous abscess of right hand Status: Acute (2) Diabetes mellitus ICD Codes: E11.9 - Type 2 diabetes mellitus without complications Status: Acute Assessment and Plan 27-year-old male with right thumb felon/paronychia status post 2 ED I&D's, with lack of improvement Risks benefits alternative treatments discussed All questions answered and the patient expressed understanding Patient elected to assume the risk of right thumb incision and drainage Informed consent obtained 1% lidocaine plain was instilled in a digital block Under sterile conditions the abscess was incised with several mils of purulence expressed The abscess cavity encompassed the entire pulp of the thumb tip from ulnar to radial and down to bone Russell left in place 2 Cultures sent Russell may be discontinued with next soaking Continue IV antibiotics for at least 24 hours 3 times daily soaks in warm soapy water one-to-one with Betadine then cover with dry dressing Problem Qualifiers (1) Diabetes mellitus: Qualified Codes: E11.8 - Type 2 diabetes mellitus with unspecified complications Kyle Moser MD November 13, 2017 15:05
[2017-11-13 16:00] VITALS: BP 144/95; PULSE 84; RESP 18; TEMP 98.1; O2SAT 97
[2017-11-13] MEDS ORDERED: ACETAMINOPHEN/HYDROcodone 325 MG/5 MG TAB PO PRN (16:00)
[2017-11-13] MEDS ORDERED: MORPHINE SULFATE 4 MG/ML INJ IV PUSH PRN (16:00)
[2017-11-13] MEDS ORDERED: ACETAMINOPHEN/HYDROcodone 325 MG/10 MG TAB PO PRN (16:00)
[2017-11-13] MEDS: PIPERACIL-TAZO 3.375 GM PREMIX 50 ML IV SCH ×2 (17:16→22:40)
[2017-11-13] MEDS: VANCOMYCIN INJ 1,500 MG in SODIUM CHLORID 0.9% 500 ML INJ 500 ML IV SCH (17:18)
[2017-11-13 20:00] VITALS: BP 137/75; PULSE 82; RESP 17; TEMP 98.4; O2SAT 96
[2017-11-13] MEDS: SODIUM CHLORIDE 0.9% FLUSH 10 ML FLUSH IV FLUSH SCH (20:08)
--- NOTE | 2017-11-13 20:37 | RADRPT ---
EXAM DATE/TIME: 11/13/2017 20:30 [facility] COMPARISON: No previous studies available for comparison. INDICATIONS : Left elbow pain with no injury. MEDICAL HISTORY : None. SURGICAL HISTORY : None. ENCOUNTER: Initial ACUITY: >1 year PAIN SCORE: 6/10 LOCATION: Left posterior elbow. FINDINGS: Multiple view examination of the left elbow demonstrates no soft tissue swelling, joint effusion, or fracture. The osseous structures are in normal alignment. Bony mineralization is normal. CONCLUSION: No acute fracture the. Wayne Simms MD on November 13, 2017 at 20:34 Board Certified Radiologist. This report was verified electronically.
[2017-11-13] MEDS ORDERED: VANCOMYCIN INJ 1,000 MG in SODIUM CHLOR 0.9% 250 ML INJ 250 ML IV SCH (23:00)
[2017-11-14] VITALS: BP 133/83; PULSE 78; RESP 17; TEMP 97.5; O2SAT 95
[2017-11-14 04:00] VITALS: BP 127/75; PULSE 76; RESP 18; TEMP 97.8; O2SAT 98
[2017-11-14] MEDS: PIPERACIL-TAZO 3.375 GM PREMIX 50 ML IV SCH ×2 (04:48→09:24)
[2017-11-14] MEDS: VANCOMYCIN INJ 1,500 MG in SODIUM CHLORID 0.9% 500 ML INJ 500 ML IV SCH (05:21)
[2017-11-14 07:10] LABS: AUTOMATED NEUTROPHIL # 5.9 TH/MM3 (1.8-7.7); BASOPHIL % 0.4 % (0.0-2.0); EOSINOPHIL # 0.1 TH/MM3 (0-0.4); EOSINOPHIL % 0.9 % (0.0-4.0); HEMATOCRIT 42.4 % (39.0-51.0); HEMOGLOBIN 14.8 GM/DL (13.0-17.0); LYMPH % 33.2 % (9.0-44.0); LYMPHOCYTE # 3.5 TH/MM3 (1.0-4.8); MEAN CELL VOLUME 79.9 FL (80.0-100.0); MEAN CORPUSCULAR HEMOGLOBIN 27.9 PG (27.0-34.0); MEAN PLATELET VOLUME 8.4 FL (7.0-11.0); MONOCYTE # 0.9 TH/MM3 (0-0.9); NEUT % 56.5 % (16.0-70.0); PLATELET COUNT 369 TH/MM3 (150-450); RED BLOOD COUNT 5.31 MIL/MM3 (4.50-5.90); RED CELL DISTRIBUTION WIDTH 13.2 % (11.6-17.2); WHITE BLOOD COUNT 10.4 TH/MM3 (4.0-11.0)
[2017-11-14 07:38] LABS: BICARBONATE 27.6 MEQ/L (21.0-32.0); CREATININE 0.81 MG/DL (0.60-1.30)
[2017-11-14 08:00] VITALS: BP 140/78; PULSE 81; RESP 20; TEMP 97.8; O2SAT 98
[2017-11-14] MEDS: SODIUM CHLORIDE 0.9% FLUSH 10 ML FLUSH IV FLUSH SCH (09:00)
[2017-11-14] MEDS: INSULIN ASPART SUPPLEMENTAL SCALE SQ SCH ×2 (09:25→13:00)
[2017-11-14] MEDS: metFORMIN HCL 500 MG TAB PO SCH ×2 (09:25→13:00)
--- NOTE | 2017-11-14 10:01 | HHI.PR ---
Subjective Remarks Patient feels much improved. Less swelling/edema. Patient has been proceeding with the Betadine warm soapy water soaks. Much less pain. Objective Vital Signs Date Time Temp Pulse Resp B/P (MAP) Pulse Ox O2 Delivery O2 Flow Rate FiO2 11/14/17 08:00 97.8 81 20 140/78 (98) 98 11/14/17 04:00 97.8 76 18 127/75 (92) 98 11/14/17 00:00 97.5 78 17 133/83 (100) 95 11/13/17 20:00 98.4 82 17 137/75 (95) 96 11/13/17 20:00 Room Air 11/13/17 17:30 Room Air 11/13/17 16:00 98.1 84 18 144/95 (111) 97 11/13/17 14:30 97.6 84 16 137/85 (102) 99 I/O 11/13/17 11/13/17 11/13/17 11/14/17 11/14/17 11/14/17 07:00 15:00 23:00 07:00 15:00 23:00 Intake Total 300 ml 480 ml 220 ml Balance 300 ml 480 ml 220 ml Intake Oral 480 ml 120 ml IV Total 300 ml 100 ml # Voids 1 # Bowel Movements 0 Result Diagram: 11/14/17 0641 11/14/17 0641 Objective Remarks Patient appears much more comfortable Dressing removed Less edema Much less tender Assessment and Plan Problem List: (1) Abscess of thumb, right ICD Codes: L02.511 - Cutaneous abscess of right hand Status: Acute (2) Diabetes mellitus ICD Codes: E11.9 - Type 2 diabetes mellitus without complications Status: Acute Assessment and Plan 27-year-old male with right thumb felon/paronychia status post 2 ED I&D's, with lack of improvement, now postop day 1 status post incision and drainage Patient doing very well Patient should continue warm soapy water soaks 3 times daily, then followed with copious mupirocin ointment and cover with dry gauze Please have patient follow-up in my hand clinic in 1-2 weeks Patient may discharge per primary Please order patient 2 tubes of mupirocin ointment with several refills Patient should be discharged on oral antibiotics Problem Qualifiers (1) Diabetes mellitus: Qualified Codes: E11.8 - Type 2 diabetes mellitus with unspecified complications Kyle Moser MD November 14, 2017 10:00
[2017-11-14] MEDS ORDERED: MUPI2OIN TOPICAL (10:48)
[2017-11-14] MEDS ORDERED: METF1000 PO (10:55)
--- NOTE | 2017-11-14 10:57 | HHI.DS ---
Discharge Summary Admission Date November 13, 2017 at 11:17 Discharge Date: November 14, 2017 Admitting Diagnosis abscess right thumb, DM (1) Abscess of thumb, right ICD Codes: L02.511 - Cutaneous abscess of right hand Status: Acute (2) Diabetes mellitus ICD Codes: E11.9 - Type 2 diabetes mellitus without complications Status: Acute Consultants Dr. Corrales, surgery Procedures I&D right thumb 11/13/17 Brief History This is a 27-year-old male patient with past medical history which includes diabetes mellitus currently on metformin. Patient initially presented to the emergency department on 11/06/2017 with edema and pain on the medial aspect of his right thumb which started 11/05/2017. Patient does endorse biting cuticles. On 12/03/2017 patient underwent I&D then was discharged home on Keflex and Bactrim by mouth. Culture and Gram stain from 11/07/2017 revealed staph species coagulase-negative, Staphylococcus viridans and gram-negative rods. Patient returned to the emergency department on 11/11/2017 with worsening edema and pain of the right thumb area. On 11/11/2017 patient underwent I&D of right thumb with packing placed. Patient returned to emergency department today as instructed packing was removed. Patient reports being compliant with his by mouth antibiotics. Unfortunately the patient is having worsening edema and pain to the right thumb. ER provider contacted Plastic surgeon propagation worker Dr. Corrales who would like patient admitted to observation and plans to do bedside I&D later today. CBC/BMP: 11/14/17 0641 11/14/17 0641 Significant Findings Laboratory Tests Test 11/13/17 09:30 11/14/17 06:41 White Blood Count 12.5 TH/MM3 (4.0-11.0) Mean Corpuscular Volume 79.5 FL (80.0-100.0) 79.9 FL (80.0-100.0) Mean Corpuscular Hemoglobin 26.9 PG (27.0-34.0) Monocytes (%) (Auto) 10.2 % (0.0-8.0) 9.0 % (0.0-8.0) Monocytes # (Auto) 1.3 TH/MM3 (0-0.9) Random Glucose 339 MG/DL (74-106) 231 MG/DL (74-106) Sodium Level 132 MEQ/L (136-145) Chloride Level 96 MEQ/L (98-107) Imaging Last Impressions Chest X-Ray 11/13/17 1055 Signed Impressions: Service Date/Time: November 11:01 - CONCLUSION: No acute disease. Luis Alberto Marcano MD Elbow X-Ray 11/13/17 0000 Signed Impressions: Service Date/Time: November 20:30 - CONCLUSION: No acute fracture the. Wayne Simms MD PE at Discharge GENERAL: This is a well-nourished, well-developed patient, in no apparent distress. SKIN: dressing right thumb dry and intact CARDIOVASCULAR: Regular rate and rhythm RESPIRATORY: Clear to auscultation. Breath sounds equal bilaterally. GASTROINTESTINAL: Abdomen soft, non-tender, nondistended. Normal active bowel sounds MUSCULOSKELETAL: Extremities without clubbing, cyanosis, or edema. NEURO: Alert & Oriented x4 to person, place, time, situation. Moves all ext x4 Hospital Course Abscess of thumb, right Patient is S/P I&D 11/06/17 and 11/11/17 Patient reports he has completed Keflex and Bactrim outpatient Culture and Gram stain from 11/07/2017 revealed staph species coagulase-negative, Staphylococcus viridans and gram-negative rods. ER provider contacted Plastic surgeon propagation worker Dr. Valencia and morphine as needed for pain Vancomycin and Zosyn while in hospital transitioned to PO outpatient Ehsan who would like patient admitted to observation and plans to do bedside I&D later today Consult placed to Plastic/hand surgery Dr. Corrales Per Dr. Corrales note: Patient should continue warm soapy water soaks 3 times daily, then followed with copious mupirocin ointment and cover with dry gauze Please have patient follow-up in my hand clinic in 1-2 weeks Patient may discharge per primary DVT prophylaxis with SCDs Diabetes mellitus Patient's blood glucose elevated while in hospital increase metformin to 1000 mg PO BID add accu checks ACHS with SSI coverage while in hospital Patient to follow up with PCP for further management of diabetes Pt Condition on Discharge: Stable Discharge Disposition: Discharge Home Discharge Instructions DIET: Follow Instructions for: Diabetic Diet Activities you can perform: Regular-No Restrictions Other Activity Instructions: Follow up Referrals: Hand Surgery - [address] Decesare PCP Follow-up - [address] Berg New Medications: Doxycycline Hyclate (Doxycycline Hyclate) 100 Mg Cap 100 MG PO BID for Infection, #14 CAP 0 Refills Metformin (Metformin) 1,000 Mg Tab 1000 MG PO BIDPC for Blood Sugar Management, #60 TAB 0 Refills Mupirocin Topical (Mupirocin Topical) 2 % Oint 1 APPLIC TOPICAL BID for Mgmt Bacterial Infection, #2 TUBE 3 Refills Sulfamethoxazole-Trimethoprim (Bactrim DS) 800-160 Mg Tab 1 TAB PO BID for Infection, #14 TAB 0 Refills Discontinued Medications: Metformin (Glucophage) 500 Mg Tab 500 MG PO TIDPC for Blood Sugar Management, #90 TAB 0 Refills Additional Information continue warm soapy water soaks 3 times daily, then followed with copious mupirocin ointment and cover with dry gauze Selma Oliveira November 14, 2017 10:57
[2017-11-14 12:00] VITALS: BP 114/58; PULSE 88; RESP 20; TEMP 98.9; O2SAT 97
--- NOTE | 2017-11-14 13:18 | HHI.DCPOC ---
Discharge Care Plan Diagnosis: (1) Diabetes mellitus (2) Abscess of thumb, right Goals to Promote Your Health * To prevent worsening of your condition and complications * To maintain your health at the optimal level Directions to Meet Your Goals Take your medications as prescribed Follow your dietary instruction Follow activity as directed Keep your appointments as scheduled Take your immunizations and boosters as scheduled If your symptoms worsen call your PCP, if no PCP go to Urgent Care Center or Emergency Room Smoking is Dangerous to Your Health. Avoid second hand smoke Call the 24-hour hour crisis hotline for domestic abuse at Selma Oliveira November 14, 2017 13:18
[2017-11-14] MEDS ORDERED: BACT800T5 PO (13:54)
[2017-11-14] MEDS ORDERED: DOXY100C PO (13:54)
[2017-11-15] MEDS ORDERED: PHARMACY ORDERED LAB ONE (05:45)
--- NOTE | 2017-11-15 08:50 | EKG ---
Date Performed: 11/13/2017 Time Performed: 11:42:55 PTAGE: 27 years EKG: Sinus rhythm ST ELEVATION, PROBABLY EARLY REPOLARIZATION BORDERLINE ECG PREVIOUS TRACING : 03/09/2017 17.55 DOCTOR: Stephanie Menendez Interpretating Date/Time 11/15/2017 08:47:15
== END 2017-11-14 16:40 | disposition home or self-care (01) | DRG 603 ==
LOC: NEPD 08:20 → NEDA 11:17 → N04B 13:50
PROVIDERS: ADMIT Hospitalist; ATTEND Hospitalist
DX: L02.511 Cutaneous abscess of right hand (principal); B95.4 Other streptococcus as the cause of diseases classified elsewhere; E11.9 Type 2 diabetes mellitus without complications; Z79.4 Long term (current) use of insulin
CPT/HCPCS: 10061; 71045; 73080; 80048; 85025; 85610; 85730; 87070; 87205; 93005; 96365; 96368; J1815; J2543; J3370; J7040; J7050